=== PATIENT | male | born 1955 | race Caucasian/White ===

== ENCOUNTER 2023-06-05 02:18 | Day surgery (SDC) | payer OTHER, SELFPAY ==
[2023-05-28 14:55] VITALS: BMI 25.6
--- NOTE | 2023-06-03 09:28 | SUR.PREOP ---
Patient called regarding upcoming procedure. Voicemail left regarding appointment times.
[2023-06-05 08:46] VITALS: BP 122/73; PULSE 74; RESP 16; TEMP 36.3; O2SAT 99
[2023-06-05] MEDS: LACTATED RINGERS 1,000 ML 150 ML IV CONT (08:53)
--- NOTE | 2023-06-05 09:02 | P.PNAN_ITS ---
Anes - Initial Pre Proc Eval Procedure: Operation Date: 06/05/23 10:00 Proposed Procedures p Colonoscopy - Chavo Esquivel MD Date/Time: 06/05/23 09:02 Surgeon: Chavo Esquivel MD Pre Op Diagnosis: hx colon polyps Patient Data Age: 67 Gender: M Height: 1.75 m Weight: 77 kg Last Vital Signs Temp 97.3 F L 06/05/23 08:46 Pulse 74 06/05/23 08:46 Resp 16 06/05/23 08:46 BP 122/73 06/05/23 08:46 Pulse Ox 99 06/05/23 08:46 O2 Del Method Room Air 06/05/23 08:46 Allergies Allergy/AdvReac Type Severity Reaction Status Date / Time Penicillins Allergy Unknown Unknown Verified 06/05/23 08:45 shellfish derived Allergy Hives Verified 06/05/23 08:45 SULFA Allergy Intermediate Hives Uncoded 06/05/23 08:45 Home Medications Medication Instructions Recorded Confirmed Type simvastatin 40 mg tablet 40 mg PO DAILY #90 tabs 01/15/23 05/28/23 Rx vitamin E (dl, acetate) 180 mg 180 mg PO DAILY 05/28/23 05/28/23 History (400 unit) capsule Patient hx anesthesia problems: none Family hx anesthesia problems: none Results Review: All pre-operative results and documents have been reviewed as part of the pre- operative evaluation. [facility] Past Medical History Medical History (Updated 02/05/22 @ 10:54 by Mony Melgoza) Essential tremor Pure hypercholesterolemia, unspecified Family History Family History (Updated 02/05/22 @ 10:55 by Mony Melgoza) Father Esophageal cancer Mother Parkinsons Social History Social History Smoking status: Never smoker Alcohol intake: current Substance use: never Substance use type: does not use Living arrangements: with family Spiritual care concerns: No Anes - Eval Final PreProcedure Day of Procedure 06/05/23 09:02 Patient weight: normal Heart: regular rate and rhythm Lungs: clear to auscultation Airway: Mallampati scale class II Neurological: alert and oriented Last oral intake: >/= 8 hours ASA classification: II Emergent: no Anesthetic plan: proceed Anesthesia type and monitoring: general GIVS and standard monitoring Results Review: All pre-operative results and documents have been reviewed as part of the pre- operative evaluation. Informed Consent: The patient's anesthetic plan and its attendant risks and benefits were discussed with the patient/family/POA. Questions were solicited and answers provided to the satisfaction of the patient/family/POA.
--- NOTE | 2023-06-05 09:24 | PM.HPGS ---
History of Present Illness History of Present Illness Consent: Risks, benefits, and alternatives have been discussed and questions answered. Patient agrees to proceed with procedure. Chief complaint: colon screen Narrative: Boris Bonds is a 67 year old male here for screening colonoscopy, last one in 2012 Review of Systems Review of Systems: All systems reviewed & are unremarkable except as noted in HPI and below PMFSH Past Medical History Medical History (Updated 06/05/23 @ 09:25 by Chavo Esquivel MD) Colon cancer screening Essential tremor Pure hypercholesterolemia, unspecified Family History Family History (Updated 02/05/22 @ 10:55 by Mony Melgoza) Father Esophageal cancer Mother Parkinsons Social History Social History Smoking status: Never smoker Alcohol intake: current Substance use: never Substance use type: does not use Living arrangements: with family Spiritual care concerns: No Meds Home Medications and Allergies Home Medications Medication Instructions Recorded Confirmed Type simvastatin 40 mg tablet 40 mg PO DAILY #90 tabs 01/15/23 05/28/23 Rx vitamin E (dl, acetate) 180 mg 180 mg PO DAILY 05/28/23 05/28/23 History (400 unit) capsule Allergies Allergy/AdvReac Type Severity Reaction Status Date / Time Penicillins Allergy Unknown Unknown Verified 06/05/23 08:45 shellfish derived Allergy Hives Verified 06/05/23 08:45 SULFA Allergy Intermediate Hives Uncoded 06/05/23 08:45 Vital Signs Vital Signs - 24 hr 06/05/23 08:46 Temperature 97.3 F L Pulse Rate 74 Respiratory Rate 16 Blood Pressure 122/73 Pulse Oximetry 99 Oxygen Delivery Room Air Exam Const: General: comfortable and no acute distress HENMT: Face/Nose/Sinus: Normal nares present Eyes: General: appearance normal, both eyes and all related structures Neck: Neck: no JVD Resp: Auscultation: clear to auscultation bilaterally Cardio: Rate: regular rate Rhythm: regular rhythm GI: Inspection: non-distended GI Palp: Yes Soft to palpation Skin: General skin exam: normal color Neuro: General: gait normal Speech: normal speech Extrem: General: normal to inspection Psych: Mental Status: mental status grossly normal Assessment and Plan Assessment and plan (1) Colon cancer screening: Code(s): Z12.11 - Encounter for screening for malignant neoplasm of colon Status: Acute Assessment and Plan: colonoscopy
[2023-06-05 09:40] VITALS: BP 111/58; PULSE 72; RESP 19; O2SAT 98
[2023-06-05 09:50] VITALS: BP 112/64; PULSE 68; RESP 21; O2SAT 97
[2023-06-05 09:56] VITALS: BP 116/74; PULSE 62; RESP 18; O2SAT 97
== END 2023-06-05 10:09 | disposition home or self-care (01) ==
PROVIDERS: PCP Family Medicine Adolescent Medicine; Visit Provider Internal Medicine Gastroenterology
PROC: 0DJD8ZZ Inspection of Lower Intestinal Tract, Via Natural or Artificial Opening Endoscopic (ICD-10-PCS; CPT 45378; principal; 2023-06-05 10:00)
DX: Z12.11 Encounter for screening for malignant neoplasm of colon (principal); K63.5 Polyp of colon; K64.8 Other hemorrhoids; E78.00 Pure hypercholesterolemia, unspecified; G25.0 Essential tremor; Z80.0 Family history of malignant neoplasm of digestive organs
CPT/HCPCS: 45385; 88305; J2704; J7120